=== PATIENT | female | born 1975 | race Caucasian/White ===

== ENCOUNTER 2016-09-25 17:13 | Emergency (ER) | payer OTHER | END 2016-09-25 20:25 | disposition short-term general hospital (02) | LOC: ER 17:13 | DX: G45.9 Transient cerebral ischemic attack, unspecified (principal); C71.9 Malignant neoplasm of brain, unspecified; F17.210 Nicotine dependence, cigarettes, uncomplicated; Z79.899 Other long term (current) drug therapy ==

== ENCOUNTER 2016-12-23 12:31 | Emergency (ER) | payer MEDICARE, OTHER | END 2016-12-23 16:50 | disposition home or self-care (01) | LOC: ER 12:31 | DX: E86.0 Dehydration (principal); E87.6 Hypokalemia; E83.42 Hypomagnesemia; C79.81 Secondary malignant neoplasm of breast; F17.210 Nicotine dependence, cigarettes, uncomplicated; Z79.899 Other long term (current) drug therapy | CPT/HCPCS: 36415; 96361; 96365; 96375; J2550 ==